=== PATIENT | female | born 1960 | race Caucasian/White ===

== ENCOUNTER → 2017-06-03 | Outpatient (CLI) | payer OTHER ==
[~2017-06-03] MED LIST: MACROBID 100 M100 M1 PO
== END ==
LOC: M.RAD 06-01 07:00
DX: Z12.31 Encounter for screening mammogram for malignant neoplasm of breast (principal)

== ENCOUNTER → 2018-06-09 | Outpatient (CLI) | payer OTHER | LOC: M.RAD 06-03 07:30 | DX: Z12.31 Encounter for screening mammogram for malignant neoplasm of breast (principal) ==

== ENCOUNTER → 2019-06-12 | Outpatient (CLI) | payer OTHER | LOC: M.RAD 07:03 | DX: Z12.31 Encounter for screening mammogram for malignant neoplasm of breast (principal) ==

== ENCOUNTER 2020-05-22 03:30 | Emergency (ER) | payer OTHER ==
[~2020-05-22] VITALS: Ht 160 cm; Wt 77.1 kg
[2020-05-22] MEDS ORDERED: LISINOPRIL10 MG PO (03:48)
[2020-05-22] MEDS ORDERED: OMEPRAZOLE40 MG PO (03:48)
[2020-05-22 03:59] LABS: URINE BILIRUBIN NEGATIVE (Negative); URINE BLOOD 3+ (Negative); URINE CLARITY CLOUDY; URINE COLOR YELLOW; URINE GLUCOSE-RANDOM NEGATIVE (Negative); URINE KETONES NEGATIVE (Negative); URINE PROTEIN 2+ (Negative); URINE SPECIFIC GRAVITY 1.025 (1.005-1.030); URINE UROBILINOGEN 0.2 E.U./dl (0.2-1.0)
[2020-05-22 04:05] LABS: URINE LEUKOCYTES-REFLEX 2+ (Negative); URINE NITRITE-REFLEX POSITIVE (Negative)
[2020-05-22] MEDS ORDERED: MACROBID 100 M100 M1 PO (04:30)
[2020-05-22] MEDS ORDERED: PYRIDIUM200 MG PO (04:30)
[2020-05-22 04:51] VITALS: BP 154/76
[2020-05-22 05:45] LABS: SQUAMOUS 0-3 Few /LPF (0-3)
[2020-05-22 05:46] LABS: CASTS None Seen /LPF (None Seen); CRYSTALS None Seen /LPF (None Seen); MUCUS 4-6 Moderate strn/LPF (None Seen); URINE RBC >20 Many /HPF (0-2)
== END 2020-05-22 04:52 | disposition home or self-care (01) ==
LOC: M.ERS 03:30
PROVIDERS: Emergency Medicine
DX: N39.0 Urinary tract infection, site not specified (principal); K21.9 Gastro-esophageal reflux disease without esophagitis; Z86.14 Personal history of Methicillin resistant Staphylococcus aureus infection

== ENCOUNTER → 2020-06-18 | Outpatient (CLI) | payer OTHER ==
[~2020-06-18] MED LIST changes: +LISINOPRIL10 MG PO; +OMEPRAZOLE40 MG PO; +PYRIDIUM200 MG PO
== END ==
LOC: M.RAD 06:59
PROVIDERS: ATTEND Nurse Practitioner Family
DX: Z12.31 Encounter for screening mammogram for malignant neoplasm of breast (principal); N64.89 Other specified disorders of breast

== ENCOUNTER → 2020-07-02 | Outpatient (CLI) | payer OTHER | LOC: M.ULTRA 08:40 | PROVIDERS: ATTEND Nurse Practitioner Family | DX: D25.9 Leiomyoma of uterus, unspecified (principal); N88.8 Other specified noninflammatory disorders of cervix uteri ==

== ENCOUNTER → 2021-06-19 | Outpatient (CLI) | payer OTHER | LOC: M.RAD 07:19 | PROVIDERS: ATTEND Nurse Practitioner Family | DX: Z12.31 Encounter for screening mammogram for malignant neoplasm of breast (principal) ==